=== PATIENT | male | born 1930 | race Caucasian/White ===

== ENCOUNTER 2020-10-16 02:29 | Emergency (ER) | payer OTHER, MEDICARE ==
[~2020-10-16] VITALS: Ht 177.8 cm; Wt 83.9 kg
[~2020-10-16 02:29] MED LIST: ASPI81EC PO; HYDCHL25 PO; HYDR1TAB94 PO; LISI20 PO; PRED20 PO; Percocet 5-3251 EACH PO; SIMV40 PO; SIMV80 PO; WARF5 PO
[2020-10-16] MEDS ORDERED: HYDR1TAB94 PO (04:50)
[2020-10-16] MEDS ORDERED: Colace250 MG PO (04:50)
== END 2020-10-16 05:03 | disposition home or self-care (01) ==
LOC: ER 02:29
DX: M79.604 Pain in right leg (principal); I10 Essential (primary) hypertension; E78.00 Pure hypercholesterolemia, unspecified; Z79.899 Other long term (current) drug therapy; Z88.1 Allergy status to other antibiotic agents; Z79.01 Long term (current) use of anticoagulants; Z86.73 Personal history of transient ischemic attack (TIA), and cerebral infarction without residual deficits; Z87.891 Personal history of nicotine dependence
CPT/HCPCS: 99283; A9270

== ENCOUNTER 2020-10-18 00:46 | Emergency (ER) | payer MEDICARE, OTHER ==
[~2020-10-18] VITALS: Ht 177.8 cm; Wt 83.9 kg
[~2020-10-18 00:46] MED LIST changes: +Colace250 MG PO
[2020-10-18] MEDS ORDERED: ROSU10TA PO (01:17)
[2020-10-18] MEDS ORDERED: XARELTO20 MG PO (01:18)
[2020-10-18] MEDS ORDERED: ZESTORETIC 20-121 EA PO (01:19)
[2020-10-18] MEDS ORDERED: Miralax17 GM PO (02:29)
== END 2020-10-18 02:55 | disposition home or self-care (01) ==
LOC: ER 00:46
DX: M79.604 Pain in right leg (principal); K59.00 Constipation, unspecified; Z79.01 Long term (current) use of anticoagulants; Z79.899 Other long term (current) drug therapy; Z79.52 Long term (current) use of systemic steroids; Z88.1 Allergy status to other antibiotic agents; Z87.891 Personal history of nicotine dependence
CPT/HCPCS: 99283; A9270